=== PATIENT | female | born 1950 | race Caucasian/White ===

== ENCOUNTER 2024-01-28 12:16 | Outpatient (CLI) | payer MEDICARE | END 2024-01-28 12:17 | disposition home or self-care (01) | LOC: CSHMAMMO 12:16 | PROVIDERS: ATTEND Internal Medicine Rheumatology | DX: M81.0 Age-related osteoporosis without current pathological fracture (principal); M85.851 Other specified disorders of bone density and structure, right thigh; M85.852 Other specified disorders of bone density and structure, left thigh | CPT/HCPCS: 77080 ==

== ENCOUNTER 2024-02-04 14:07 | Outpatient (CLI) | payer MEDICARE | END 2024-02-04 14:08 | disposition home or self-care (01) | LOC: CSHRAD 14:07 | PROVIDERS: ATTEND Internal Medicine Rheumatology | DX: M81.0 Age-related osteoporosis without current pathological fracture (principal); M47.814 Spondylosis without myelopathy or radiculopathy, thoracic region | CPT/HCPCS: 72072 ==